=== PATIENT | female | born 1975 | race Two or more races ===

== ENCOUNTER 2023-11-03 13:32 | Emergency (ER) | payer OTHER ==
[~2023-11-03] VITALS: Ht 165.1 cm; Wt 61.2 kg
[2023-11-03] MEDS ORDERED: hydrOXYzine PAMOATE 25 MG CAPSULE PO ONE ×2 (15:15→15:18)
== END 2023-11-03 16:50 | disposition home or self-care (01) ==
LOC: ER 13:34
DX: F43.9 Reaction to severe stress, unspecified (principal); R42 Dizziness and giddiness